=== PATIENT | female | born 1940 | race Caucasian/White ===

== ENCOUNTER 2017-01-02 09:59 | Day surgery (SDC) | payer OTHER ==
[~2017-01-02] VITALS: Ht 154.9 cm; Wt 77.6 kg
[~2017-01-02 09:59] MED LIST: AMLODIPINE BESY10 MG PO; CRESTOR20 MG PO; DIOVAN160 MG PO; FLONASE16 G1 BOTH NARES; FOSAMAX70 MG PO; GABAPENTIN100 MG PO; HYDROCODON-ACE1 EAC7 PO; KLOR-CON 1010 ME1 PO; LANSOPRAZOLE30 MG PO; LASIX20 MG PO; LO-DOSE ASPIRIN81 M1 PO; MECLIZINE HCL12.5 M1 PO; METFORMIN HCL1000 MG PO; MOBIC15 MG PO; PROBIOTIC1 EAC2 PO; REMERON15 M2 PO; TENEX1 MG PO; TOBRADEX EYE O3.5 GM BOTH EYES; TRESIBA FL100 UNIT/1 SC; TRILIPIX135 MG PO; VENLAFAXINE HC150 MG PO; VITAMIN A8000 UNIT PO; VITAMIN B-12250 MCG PO; VITAMIN C500 M1 PO; VITAMIN D31000 UNIT PO; VITAMIN E1000 UNI1 PO; ZYRTEC10 M2 PO
[2017-01-02 10:34] LABS: POINT-OF-CARE METER ID UU14174212
== END 2017-01-02 11:45 | disposition home or self-care (01) ==
LOC: PAIN 09:59 → SDC 10:30 → PAIN 11:45
PROVIDERS: Anesthesiology Pain Medicine
PROC: 01513ZZ Destruction of Cervical Nerve, Percutaneous Approach (ICD-10-PCS; principal; 2017-01-02)
DX: M47.892 Other spondylosis, cervical region (principal); M54.2 Cervicalgia; G89.29 Other chronic pain; I10 Essential (primary) hypertension; E78.5 Hyperlipidemia, unspecified; F41.1 Generalized anxiety disorder; R42 Dizziness and giddiness; M19.90 Unspecified osteoarthritis, unspecified site; E11.9 Type 2 diabetes mellitus without complications
CPT/HCPCS: 82948; J1030; J2250; J3010; S0020

== ENCOUNTER 2017-05-17 11:02 | Day surgery (SDC) | payer OTHER ==
[~2017-05-17] VITALS: Ht 152.4 cm; Wt 77.3 kg
[~2017-05-17 11:02] MED LIST changes: +CLOTRIM ANTIFUN15 GM TP; +NEURONTIN100 MG PO; +NORVASC2.5 MG PO; +ONE DAILY FOR1 EAC3 PO; +VITAMIN B-122000 MC1 PO
[2017-05-17 11:41] LABS: POINT-OF-CARE METER ID UU13113694
== END 2017-05-17 12:15 | disposition home or self-care (01) ==
LOC: PAIN 11:02 → SDC 11:45 → PAIN 11:45
PROVIDERS: Anesthesiology Pain Medicine
DX: M50.123 Cervical disc disorder at C6-C7 level with radiculopathy (principal); I10 Essential (primary) hypertension; E11.9 Type 2 diabetes mellitus without complications; K21.9 Gastro-esophageal reflux disease without esophagitis; E78.5 Hyperlipidemia, unspecified; I25.2 Old myocardial infarction; Z79.82 Long term (current) use of aspirin; Z88.2 Allergy status to sulfonamides; Z79.899 Other long term (current) drug therapy; Z79.84 Long term (current) use of oral hypoglycemic drugs; Z79.891 Long term (current) use of opiate analgesic
CPT/HCPCS: 82948; J1030; J2250; J3010

== ENCOUNTER 2017-06-14 11:06 | Day surgery (SDC) | payer OTHER ==
[~2017-06-14] VITALS: Ht 152.4 cm; Wt 77.3 kg
[~2017-06-14 11:06] MED LIST changes: +FLEXERIL5 MG PO
[2017-06-14 12:13] LABS: POINT-OF-CARE METER ID UU13113694
== END 2017-06-14 13:00 | disposition home or self-care (01) ==
LOC: PAIN 11:06 → SDC 11:45 → PAIN 11:45
PROVIDERS: Anesthesiology Pain Medicine
DX: M47.22 Other spondylosis with radiculopathy, cervical region (principal); M50.13 Cervical disc disorder with radiculopathy, cervicothoracic region; M54.2 Cervicalgia; G89.29 Other chronic pain; I10 Essential (primary) hypertension; E11.9 Type 2 diabetes mellitus without complications; M48.02 Spinal stenosis, cervical region; M25.78 Osteophyte, vertebrae; E78.5 Hyperlipidemia, unspecified; Z88.2 Allergy status to sulfonamides; Z79.891 Long term (current) use of opiate analgesic
CPT/HCPCS: 82948; J1030; J2250; J3010

== ENCOUNTER 2018-01-08 09:52 | Day surgery (SDC) | payer OTHER ==
[~2018-01-08] VITALS: Ht 152.4 cm; Wt 77.1 kg
[~2018-01-08 09:52] MED LIST changes: +TOPROL XL25 MG PO
== END 2018-01-08 11:20 | disposition home or self-care (01) ==
LOC: PAIN 09:52 → SDC 10:30 → PAIN 10:30
PROVIDERS: Anesthesiology Pain Medicine
DX: M47.816 Spondylosis without myelopathy or radiculopathy, lumbar region (principal); M50.11 Cervical disc disorder with radiculopathy, high cervical region; M25.78 Osteophyte, vertebrae; R51 Headache; M79.7 Fibromyalgia; M62.838 Other muscle spasm; I10 Essential (primary) hypertension; E11.9 Type 2 diabetes mellitus without complications; E78.5 Hyperlipidemia, unspecified; E03.9 Hypothyroidism, unspecified; I25.2 Old myocardial infarction; Z79.82 Long term (current) use of aspirin; Z79.891 Long term (current) use of opiate analgesic; Z79.84 Long term (current) use of oral hypoglycemic drugs
CPT/HCPCS: 82948; J1030; J2250; J3010; S0020

== ENCOUNTER 2018-01-15 09:35 | Day surgery (SDC) | payer OTHER ==
[~2018-01-15] VITALS: Ht 152.4 cm; Wt 77.1 kg
== END 2018-01-15 11:25 | disposition home or self-care (01) ==
LOC: PAIN 09:35 → SDC 10:30 → PAIN 11:25
PROVIDERS: Anesthesiology Pain Medicine
DX: M47.812 Spondylosis without myelopathy or radiculopathy, cervical region (principal); M25.78 Osteophyte, vertebrae; M62.838 Other muscle spasm; M54.12 Radiculopathy, cervical region; G89.29 Other chronic pain; R51 Headache; E11.9 Type 2 diabetes mellitus without complications; I10 Essential (primary) hypertension; E78.5 Hyperlipidemia, unspecified; Z91.040 Latex allergy status
CPT/HCPCS: 82948; 93005; J1030; J2250; J3010; S0020

== ENCOUNTER 2018-03-13 17:04 | Emergency (ER) | payer OTHER ==
[~2018-03-13] VITALS: Ht 152.4 cm; Wt 68.1 kg
[2018-03-13 17:51] LABS: HEMATOCRIT 26.7 % (36.0-46.0); MCH 29.3 PG (29.0-34.0); MCHC 33.7 G/DL (30.0-36.0); PLATELET COUNT 417 K/uL (156-360); RBC DIS.WIDTH-CV 14.5 % (11.8-14.6); RBC DIS.WIDTH-SD 45.6 % (39-53); RED BLOOD COUNT 3.07 M/uL (3.80-5.20); WHITE BLOOD COUNT 7.4 K/uL (4.1-10.2)
[2018-03-13 18:00] LABS: ALBUMIN 3.4 g/dL (3.2-4.8); CHLORIDE 100 mEq/L (99-109); POTASSIUM 5.7 mEq/L (3.7-5.4); SODIUM 134 mEq/L (136-147)
[2018-03-13 18:02] LABS: GLUCOSE 127 mg/dL (70-99); TOTAL PROTEIN 6.8 g/dL (6.4-8.3)
[2018-03-13 18:04] LABS: TOTAL BILIRUBIN 0.6 mg/dL (0.0-1.0)
[2018-03-13 18:06] LABS: ALKALINE PHOSPHATASE 54 IU/L (3-129); CREATININE 1.3 mg/dL (0.6-1.3); GFR ESTIMATE (CALCULATED) 42 mL/min/
[2018-03-13 18:07] LABS: UREA NITROGEN (BUN) 29 mg/dL (9-23)
[2018-03-13 18:08] LABS: AST (GOT) 22 IU/L (2-34)
[2018-03-13 18:09] LABS: ALT (GPT) 17 IU/L (3-49)
[2018-03-13 18:12] LABS: TROP-I INTERPRETATION NEGATIVE; TROPONIN-I < 0.01 ng/mL (0.0-0.30)
[2018-03-13] MEDS ORDERED: KEFLEX500 MG PO (20:06)
[2018-03-13 20:27] VITALS: BP 103/61
== END 2018-03-13 20:27 | disposition home or self-care (01) ==
LOC: EME 17:04
PROVIDERS: Emergency Medicine Emergency Medical Services
DX: L03.116 Cellulitis of left lower limb (principal); M71.22 Synovial cyst of popliteal space [Baker], left knee; E11.9 Type 2 diabetes mellitus without complications; I10 Essential (primary) hypertension; I25.2 Old myocardial infarction; Z96.653 Presence of artificial knee joint, bilateral; Z79.84 Long term (current) use of oral hypoglycemic drugs; Z79.82 Long term (current) use of aspirin
CPT/HCPCS: 71045; 80053; 83880; 84484; 85027; 93971; 99281; 99284